=== PATIENT | female | born 1970 | race Caucasian/White ===

== ENCOUNTER 2017-12-06 20:21 | Observation (INO) | payer MEDICARE ==
--- NOTE | 2017-12-06 21:34 | ED PDOC ---
HPI: General Adult Time Seen by Provider: 12/06/17 20:32 Chief Complaint (Nursing): Abnormal Labs Chief Complaint (Provider): Anemia History Per: Patient History/Exam Limitations: no limitations Current Symptoms Are (Timing): Still Present Additional Complaint(s): 47 year old female, with past medical history of iron deficiency, anemia, and epilepsy, presents to the ED via EMS due to anemia. Patient saw her neurologist 2-3 months ago who wanted blood work done. Patient obtained blood work yesterday showing she has hemoglobin at 5. Since last week, she has been having dizziness. 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 She can not get any iron fusion also because of insurance problems. Denies fever, CP, SOB, headache, N/V, abdominal pain, melena, hematochezia, heavy menses. PMD: Keisha Varela Past Medical History Reviewed: Historical Data, Nursing Documentation, Vital Signs Vital Signs: Last Vital Signs Temp 98.2 F 12/07/17 00:44 Pulse 87 12/07/17 00:44 Resp 20 12/07/17 00:44 BP 144/70 12/07/17 00:44 Pulse Ox 97 12/07/17 00:44 - Medical History PMH: Anemia, Seizures Other PMH: Iron deficiency and epilepsy - Surgical History Surgical History: No Surg Hx - Family History Family History: States: Unknown Family Hx - Home Medications Home Medications: Ambulatory Orders Medication Instructions Recorded Carbamazepine [Carbatrol] 400 mg PO Q12 07/26/15 - Allergies Allergies/Adverse Reactions: Allergies Allergy/AdvReac Type Severity Reaction Status Date / Time No Known Allergies Allergy Verified 12/06/17 20:21 Review of Systems ROS Statement: Except As Marked, All Systems Reviewed And Found Negative Constitutional: Negative for: Fever Cardiovascular: Negative for: Chest Pain Respiratory: Negative for: Shortness of Breath Neurological: Positive for: Dizziness Physical Exam - Reviewed Nursing Documentation Reviewed: Yes Vital Signs Reviewed: Yes - Physical Exam Comments: GENERALIZED APPEARANCE: Patient is awake, alert, oriented x3 in no acute distress. SKIN: Warm, dry; (-) cyanosis. HEAD: (-) scalp swelling or tenderness. EYES: (-) conjunctival pallor. ENMT: Mucous membranes dry. NECK: (-) tenderness, (-) stiffness, (-) lymphadenopathy. CHEST AND RESPIRATORY: (-) rales, (-) rhonchi, (-) wheezes; breath sounds equal bilaterally. HEART AND CARDIOVASCULAR: (-) irregularity; (-) murmur, (-) gallop. ABDOMEN AND GI: Soft; (-) distention, (-) tenderness, (-) rebound, (-) guarding , (-) palpable masses. EXTREMITIES: (-) deformity; (-) edema. Distal pulses: present. NEURO AND PSYCH: Mental status as above. Pupils EOMI, (-) facial asymmetry; Strength symmetric. - Laboratory Results Result Diagrams: 12/06/17 21:17 12/06/17 21:17 - ECG O2 Sat by Pulse Oximetry: 99 (RA) Pulse Ox Interpretation: Normal Medical Decision Making Medical Decision Making: Initial Impression: Anemia Initial Plan: Type and screen ECG CMP ED urine ED urine dipstick CBC Chest x-ray Uhcg (-) Udip (-) Labs reviewed : hgb 5. CXR : NAD, as read by AMANDO EKG : 72 bpm, no acute ST changes, as read by AMANDO 2 units of PRBCs ordered for transfusion Patient to be admitted. Case d/w Dr. Thornton, agrees with plan for inpt obs for transfusions. Bridge orders placed. Scribe Attestation: Documented by Jhonathan Morales acting as a scribe for Yara GOEL. Provider Scribe Attestation: All medical record entries made by the Scribe were at my direction and personally dictated by me. I have reviewed the chart and agree that the record accurately reflects my personal performance of the history, physical exam, medical decision making, and the department course for this patient. I have also personally directed, reviewed, and agree with the discharge instructions and disposition. Disposition - Clinical Impression Clinical Impression: Anemia requiring transfusions - Patient ED Disposition Is Patient to be Admitted: Yes Counseled Patient/Family Regarding: Studies Performed, Diagnosis - Disposition Disposition Time: 22:00 Condition: STABLE - Pt Status Changed To: Hospital Disposition Of: Observation - PA / DAY CARE HOME PROVIDER / Resident Statement / has reviewed & agrees with the documentation as recorded.
[2017-12-06 21:35] LABS: BASO # 0.1 K/uL (0.0-0.2); BASO % 1.1 % (0.0-2.0); EOS # 0.2 K/uL (0.0-0.7); EOS % 2.2 % (0.0-4.0); LYMPH # 1.9 K/uL (1.0-4.3); LYMPH % 26.1 % (20.0-40.0); MEAN CORPUSCULAR HEMOGLOBIN 15.1 pg (27.0-31.0); MEAN CORPUSCULAR HGB CONC 27.4 g/dL (33.0-37.0); MEAN PLATELET VOLUME 8.6 fl (7.2-11.7); MONO # 0.6 K/uL (0.0-0.8); MONO % 8.3 % (0.0-10.0); NEUT # 4.5 K/uL (1.8-7.0); NEUT % 62.3 % (50.0-75.0); NRBC % 0.1 % (0.0-0.0); RBC 3.73 Mil/uL (3.80-5.20); RED CELL DISTRIBUTION WIDTH 21.8 % (11.5-14.5); WHITE BLOOD COUNT 7.3 K/uL (4.8-10.8)
[2017-12-06 21:41] LABS: ALB/GLOB RATIO 1.4 (1.0-2.1); ALBUMIN 4.6 g/dL (3.5-5.0); ALT/SGPT 23 U/L (9-52); AST/SGOT 21 U/L (14-36); BLOOD UREA NITROGEN 14 mg/dl (7-17); CALCIUM 8.9 mg/dL (8.4-10.2); GFR AFRICAN-AMERICAN > 60; GFR NON-AFRICAN AMERICAN > 60
[2017-12-06 21:48] LABS: HEMOGLOBIN 5.6 g/dL (12.0-16.0)
[2017-12-06 23:03] LABS: MEAN CELL VOLUME 55.2 fl (81.0-99.0)
[2017-12-06 23:23] LABS: IRON 20 ug/dL (37-170)
[2017-12-06 23:32] LABS: % IRON SATURATION 4 % (20-55); TOTAL IRON BINDING CAPACITY 504 ug/dL (250-450)
[2017-12-06 23:58] LABS: FERRITIN 2.6 ng/Ml (6.24-137.0)
--- NOTE | 2017-12-07 08:14 | RAD ---
HISTORY: dizziness COMPARISON: 07/27/2015 FINDINGS: LUNGS: No active pulmonary disease. PLEURA: No significant pleural effusion identified, no pneumothorax apparent. CARDIOVASCULAR: Normal. OSSEOUS STRUCTURES: No significant abnormalities. VISUALIZED UPPER ABDOMEN: Normal. OTHER FINDINGS: None. IMPRESSION: No focal airspace opacity. Please note that chest radiographs have low sensitivity for small pulmonary nodules. If indicated, chest CT should be obtained.
[2017-12-07 08:32] LABS: BASO % 0.8 % (0.0-2.0); EOS # 0.2 K/uL (0.0-0.7); EOS % 3.3 % (0.0-4.0); HEMOGLOBIN 7.5 g/dL (12.0-16.0); LYMPH # 1.4 K/uL (1.0-4.3); LYMPH % 23.6 % (20.0-40.0); MEAN CELL VOLUME 60.7 fl (81.0-99.0); MEAN CORPUSCULAR HGB CONC 29.7 g/dL (33.0-37.0); MEAN PLATELET VOLUME 8.5 fl (7.2-11.7); MONO # 0.6 K/uL (0.0-0.8); MONO % 10.1 % (0.0-10.0); NEUT # 3.7 K/uL (1.8-7.0); NEUT % 62.2 % (50.0-75.0); RBC 4.18 Mil/uL (3.80-5.20); RED CELL DISTRIBUTION WIDTH 29.3 % (11.5-14.5); WHITE BLOOD COUNT 5.9 K/uL (4.8-10.8)
[2017-12-07 11:11] LABS: HEMOGLOBIN 7.4 g/dL (12.0-16.0); MEAN CELL VOLUME 61.2 fl (81.0-99.0); MEAN CORPUSCULAR HGB CONC 29.4 g/dL (33.0-37.0); RBC 4.1 Mil/uL (3.80-5.20); RED CELL DISTRIBUTION WIDTH 29.5 % (11.5-14.5); WHITE BLOOD COUNT 5.4 K/uL (4.8-10.8)
[2017-12-07 11:18] LABS: ALBUMIN 3.8 g/dL (3.5-5.0); ALT/SGPT 21 U/L (9-52); AST/SGOT 23 U/L (14-36); BLOOD UREA NITROGEN 12 mg/dl (7-17); CALCIUM 8.7 mg/dL (8.4-10.2); GFR AFRICAN-AMERICAN > 60; GFR NON-AFRICAN AMERICAN > 60
--- NOTE | 2017-12-07 14:52 | CP.PCM.HP ---
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 She is followed by Neurologist for Seizure and Headache Worsening symptoms: Dizziness Aggravated factor: Unable to visit a Hematology for over a year due to insurance issues. Pt denied: Fever, chills, any bleeding, CP, palpitations, syncope, numbness, SOB, cough, n/v/d, abdominal pain, urinary symptoms, sick contact, recent travel out of [facility]. CXR: No active disease. Present on Admission - Present on Admission Any Indicators Present on Admission: No Review of Systems - Constitutional Constitutional: Other (negative) - EENT Eyes: Other (negative) Ears: Other (negative) Nose/Mouth/Throat: Other (negative) - Cardiovascular Cardiovascular: Other (negative) - Respiratory Respiratory: Other (negative) - Gastrointestinal Gastrointestinal: Other (negative) - Genitourinary Genitourinary: Other (negative) - Reproductive: Female Reproductive:Female: Heavy Menses - Menstruation Menstruation: Heavy Menses - Musculoskeletal Musculoskeletal: Other (negative) - Integumentary Integumentary: Other (negative) - Neurological Neurological: Dizziness - Psychiatric Psychiatric: Other (negative) - Endocrine Endocrine: Other (negative) - Hematologic/Lymphatic Hematologic: Other (anemia) Past Patient History - Past Medical History & Family History Past Medical History?: Yes Pertinent Family History: Unknown - Past Social History Smoking Status: Never Smoked Alcohol: None Drugs: Denies Home Situation {Lives}: Alone - CARDIAC Hx Cardiac Disorders: No - PULMONARY Hx Respiratory Disorders: No - NEUROLOGICAL Hx Neurological Disorder: Yes Hx Seizures: Yes - HEENT Hx HEENT Problems: No - RENAL Hx Chronic Kidney Disease: No - ENDOCRINE/METABOLIC Hx Endocrine Disorders: No - HEMATOLOGICAL/ONCOLOGICAL Hx Blood Disorders: Yes Hx Anemia: Yes - INTEGUMENTARY Hx Dermatological Problems: No - MUSCULOSKELETAL/RHEUMATOLOGICAL Hx Musculoskeletal Disorders: No Hx Falls: No - GASTROINTESTINAL Hx Gastrointestinal Disorders: No - GENITOURINARY/GYNECOLOGICAL Hx Genitourinary Disorders: No - PSYCHIATRIC Hx Psychophysiologic Disorder: No Hx Substance Use: No - SURGICAL HISTORY Hx Surgeries: Yes Hx Section: Yes Hx Musculoskeletal Surgery: Yes (right foot) - ANESTHESIA Hx Anesthesia: Yes Hx Anesthesia Reactions: No Hx Malignant Hyperthermia: No Has any member of the family had a problem w/ anesthesia?: No Meds Allergies/Adverse Reactions: Allergies Allergy/AdvReac Type Severity Reaction Status Date / Time No Known Allergies Allergy Verified 12/06/17 20:21 Physical Exam - Constitutional Appears: No Acute Distress - Head Exam Head Exam: NORMAL INSPECTION - Eye Exam Eye Exam: PERRL - ENT Exam ENT Exam: Normal Exam - Neck Exam Neck exam: Positive for: Normal Inspection - Respiratory Exam Respiratory Exam: Clear to Auscultation Bilateral - Cardiovascular Exam Cardiovascular Exam: REGULAR RHYTHM - GI/Abdominal Exam GI & Abdominal Exam: Normal Bowel Sounds, Soft - Extremities Exam Extremities exam: Positive for: normal inspection - Back Exam Back exam: NORMAL INSPECTION - Neurological Exam Neurological exam: Alert, Oriented x3 Additional comments: No motor/sensory deficit. - Psychiatric Exam Psychiatric exam: Normal Affect - Skin Skin Exam: Warm Results - Vital Signs Recent Vital Signs: Last Vital Signs Temp 97.4 F L 12/07/17 08:08 Pulse 64 12/07/17 08:08 Resp 19 12/07/17 08:08 BP 113/75 12/07/17 08:08 Pulse Ox 98 12/07/17 08:08 reviewed J.pTan - Labs Result Diagrams: 12/07/17 22:33 12/07/17 11:01 Labs: Laboratory Results - last 24 hr 12/06/17 12/06/17 12/06/17 21:17 21:17 23:00 WBC 7.3 RBC 3.73 L Hgb 5.6 L* Hct 20.6 L MCV 55.2 L MCH 15.1 L MCHC 27.4 L RDW 21.8 H Plt Count 230 MPV 8.6 Neut % (Auto) 62.3 Lymph % (Auto) 26.1 [place] % (Auto) 8.3 Eos % (Auto) 2.2 Baso % (Auto) 1.1 Neut # (Auto) 4.5 Lymph # (Auto) 1.9 [place] # (Auto) 0.6 Eos # (Auto) 0.2 Baso # (Auto) 0.1 Retic Count Sodium 139 Potassium 4.0 Chloride 104 Carbon Dioxide 25 Anion Gap 14 BUN 14 Creatinine 0.5 L Est GFR ( Amer) > 60 Est GFR (Non-Af Amer) > 60 Random Glucose 89 Calcium 8.9 Iron TIBC % Saturation Ferritin 2.6 L Total Bilirubin 0.3 AST 21 ALT 23 Alkaline Phosphatase 82 Total Protein 8.0 Albumin 4.6 Globulin 3.4 Albumin/Globulin Ratio 1.4 Vitamin B12 601 Carbamazepine Blood Type Antibody Screen Crossmatch BBK History Checked 12/06/17 12/06/17 12/06/17 23:00 23:00 23:06 WBC RBC Hgb Hct MCV MCH MCHC RDW Plt Count MPV Neut % (Auto) Lymph % (Auto) [place] % (Auto) Eos % (Auto) Baso % (Auto) Neut # (Auto) Lymph # (Auto) [place] # (Auto) Eos # (Auto) Baso # (Auto) Retic Count 2.8 H Sodium Potassium Chloride Carbon Dioxide Anion Gap BUN Creatinine Est GFR ( Amer) Est GFR (Non-Af Amer) Random Glucose Calcium Iron 20 L TIBC 504 H % Saturation 4 L Ferritin Total Bilirubin AST ALT Alkaline Phosphatase Total Protein Albumin Globulin Albumin/Globulin Ratio Vitamin B12 Carbamazepine Blood Type O POSITIVE Antibody Screen Negative Crossmatch See Detail BBK History Checked Patient has bt 12/07/17 12/07/17 12/07/17 08:11 08:11 11:01 WBC 5.9 5.4 RBC 4.18 4.10 Hgb 7.5 L 7.4 L Hct 25.4 L 25.1 L MCV 60.7 L D 61.2 L MCH 18.0 L 18.0 L MCHC 29.7 L 29.4 L RDW 29.3 H 29.5 H Plt Count 220 210 MPV 8.5 Neut % (Auto) 62.2 Lymph % (Auto) 23.6 [place] % (Auto) 10.1 H Eos % (Auto) 3.3 Baso % (Auto) 0.8 Neut # (Auto) 3.7 Lymph # (Auto) 1.4 [place] # (Auto) 0.6 Eos # (Auto) 0.2 Baso # (Auto) 0.0 Retic Count Sodium Potassium Chloride Carbon Dioxide Anion Gap BUN Creatinine Est GFR ( Amer) Est GFR (Non-Af Amer) Random Glucose Calcium Iron TIBC % Saturation Ferritin Total Bilirubin AST ALT Alkaline Phosphatase Total Protein Albumin Globulin Albumin/Globulin Ratio Vitamin B12 Carbamazepine 7.2 Blood Type Antibody Screen Crossmatch BBK History Checked 12/07/17 11:01 WBC RBC Hgb Hct MCV MCH MCHC RDW Plt Count MPV Neut % (Auto) Lymph % (Auto) [place] % (Auto) Eos % (Auto) Baso % (Auto) Neut # (Auto) Lymph # (Auto) [place] # (Auto) Eos # (Auto) Baso # (Auto) Retic Count Sodium 142 Potassium 4.1 Chloride 106 Carbon Dioxide 24 Anion Gap 16 BUN 12 Creatinine 0.6 L Est GFR ( Amer) > 60 Est GFR (Non-Af Amer) > 60 Random Glucose 80 Calcium 8.7 Iron TIBC % Saturation Ferritin Total Bilirubin 0.5 AST 23 ALT 21 Alkaline Phosphatase 76 Total Protein 7.6 Albumin 3.8 Globulin 3.7 Albumin/Globulin Ratio 1.0 Vitamin B12 Carbamazepine Blood Type Antibody Screen Crossmatch BBK History Checked reviewed J.P. - Imaging and Cardiology Chest x-ray Status: Report reviewed by me (Angela.P.) Assessment & Plan (1) Anemia requiring transfusions Status: Acute Priority: High Comment: Iron def. (2) Hx of seizure disorder Status: Chronic Priority: Low - Assessment and Plan (Free Text) Plan: Pt had 2 U PRBC with no adverse reaction, further PRBC transfusion , continue Tegretol X-R, Tylenol and rest of Tx. Hematology consult. - Date & Time Date: 12/07/17 Time: 11:00
[2017-12-07 22:37] LABS: HEMOGLOBIN 8.9 g/dL (12.0-16.0); MEAN CELL VOLUME 63.6 fl (81.0-99.0); MEAN CORPUSCULAR HEMOGLOBIN 19.2 pg (27.0-31.0); MEAN CORPUSCULAR HGB CONC 30.2 g/dL (33.0-37.0); RBC 4.65 Mil/uL (3.80-5.20); RED CELL DISTRIBUTION WIDTH 31.4 % (11.5-14.5); WHITE BLOOD COUNT 7.2 K/uL (4.8-10.8)
--- NOTE | 2017-12-08 08:37 | CARD ---
APPROVED REPORT EKG Measurement Heart [id number] <Conclusion> Normal sinus rhythm Normal ECG
--- NOTE | 2017-12-08 14:12 | CP.PCM.CON ---
History of Present Illness - History of Present Illness History of Present Illness: This is a 47 yrs old female who was admitted for severe iron deficiency anemia.On admission her hgb was 5.6 with a mcv of 558.. Her WBC and Platelets were normal . She was feeling very tired and was a little short of breath as well.. She was transfused 3 units of packed cells and her hgb today was 8.9gms The iron was 20, Tibc 504, Iron Sat 4.7%, and ferritin 2.6ngm. Retic was 2.8. According to her she has been going through this for the past couple of years. . She is being seen by Dr Loving for dysfunctional uterine bleeding. She has periods for about 5 days ,with heavy bleed. She has been scheduled for surgery a couple of times but everytime her hgb is low and surgery is postponed. She claims that her children are teenagers and does not want any more kids.She is willing for a total hysterectomy if thats what is needed to feel better. She is not a smoker or a heavy drinker. Past Patient History - Past Medical History & Family History Past Medical History?: Yes - Past Social History Smoking Status: Never Smoked Alcohol: None Drugs: Denies Home Situation {Lives}: Alone - CARDIAC Hx Cardiac Disorders: No - PULMONARY Hx Respiratory Disorders: No - NEUROLOGICAL Hx Neurological Disorder: Yes Hx Seizures: Yes - HEENT Hx HEENT Problems: No - RENAL Hx Chronic Kidney Disease: No - ENDOCRINE/METABOLIC Hx Endocrine Disorders: No - HEMATOLOGICAL/ONCOLOGICAL Hx Blood Disorders: Yes Hx Anemia: Yes - INTEGUMENTARY Hx Dermatological Problems: No - MUSCULOSKELETAL/RHEUMATOLOGICAL Hx Musculoskeletal Disorders: No Hx Falls: No - GASTROINTESTINAL Hx Gastrointestinal Disorders: No - GENITOURINARY/GYNECOLOGICAL Hx Genitourinary Disorders: No - PSYCHIATRIC Hx Psychophysiologic Disorder: No Hx Substance Use: No - SURGICAL HISTORY Hx Surgeries: Yes Hx Section: Yes Hx Musculoskeletal Surgery: Yes (right foot) - ANESTHESIA Hx Anesthesia: Yes Hx Anesthesia Reactions: No Hx Malignant Hyperthermia: No Has any member of the family had a problem w/ anesthesia?: No Meds Allergies/Adverse Reactions: Allergies Allergy/AdvReac Type Severity Reaction Status Date / Time No Known Allergies Allergy Verified 12/06/17 20:21 - Medications Medications: Current Medications Acetaminophen (Tylenol 325mg Tab) 650 mg PO Q4 PRN PRN Reason: Headache Last Admin: 12/07/17 15:39 Dose: 650 mg Carbamazepine (Tegretol-Xr) 400 mg PO Q12 TERRI Last Admin: 12/08/17 09:56 Dose: 400 mg Iron Sucrose 200 mg/ Sodium (Chloride) 110 mls @ 110 mls/hr IVPB DAILY TERRI Stop: 12/09/17 09:59 Last Admin: 12/08/17 11:32 Dose: 110 mls/hr Physical Exam - Additional Findings Additional findings: Physical exan; alert, well oriented in no acute distress neck; supple, no adnenopathy Chest; clear, no rales or rhonchi Heast; RSR, no murmur Abd; Soft, no mass, no h/s megaly Results - Vital Signs Recent Vital Signs: Last Vital Signs Temp 97.5 F L 12/08/17 08:15 Pulse 70 12/08/17 08:15 Resp 19 12/08/17 08:15 BP 102/68 12/08/17 08:15 Pulse Ox 98 12/08/17 08:15 - Labs Result Diagrams: 12/07/17 22:33 12/07/17 11:01 Labs: Laboratory Results - last 24 hr 12/06/17 12/07/17 23:06 22:33 WBC 7.2 RBC 4.65 Hgb 8.9 L Hct 29.6 L MCV 63.6 L D MCH 19.2 L MCHC 30.2 L RDW 31.4 H Plt Count 237 Blood Type O POSITIVE Antibody Screen Negative Crossmatch See Detail BBK History Checked Patient has bt Assessment & Plan - Assessment and Plan (Free Text) Assessment: Impression; Severe iron deficiency anemia secondary to dysfunctional uterine bleeding.. Plan: plan; Since her ferritin was so low, will give her 3 total days of venofer to see if the hgb and the ferritin goes up.
--- NOTE | 2017-12-08 17:39 | CP.PCM.PN ---
Subjective - Date & Time of Evaluation Date of Evaluation: 12/08/17 Time of Evaluation: 14:15 - Subjective Subjective: F/U Anemia. no AD, N/C, no dizziness Objective - Vital Signs/Intake and Output Vital Signs (last 24 hours): Temp Pulse Resp BP Pulse Ox 97.7 F 76 18 114/78 100 12/08/17 15:56 12/08/17 15:56 12/08/17 15:56 12/08/17 15:56 12/08/17 15:56 - Medications Medications: Current Medications Acetaminophen (Tylenol 325mg Tab) 650 mg PO Q4 PRN PRN Reason: Headache Last Admin: 12/07/17 15:39 Dose: 650 mg Carbamazepine (Tegretol-Xr) 400 mg PO Q12 TERRI Last Admin: 12/08/17 09:56 Dose: 400 mg Iron Sucrose 200 mg/ Sodium (Chloride) 110 mls @ 110 mls/hr IVPB DAILY TERRI Stop: 12/09/17 09:59 Last Admin: 12/08/17 11:32 Dose: 110 mls/hr - Labs Labs: 12/07/17 22:33 12/07/17 11:01 - Constitutional Appears: No Acute Distress - Head Exam Head Exam: NORMAL INSPECTION - Eye Exam Eye Exam: PERRL - ENT Exam ENT Exam: Normal Exam - Neck Exam Neck Exam: Normal Inspection - Respiratory Exam Respiratory Exam: Clear to Ausculation Bilateral - Cardiovascular Exam Cardiovascular Exam: REGULAR RHYTHM - GI/Abdominal Exam GI & Abdominal Exam: Soft, Normal Bowel Sounds - Extremities Exam Extremities Exam: Normal Inspection - Back Exam Back Exam: NORMAL INSPECTION - Neurological Exam Neurological Exam: Alert, Oriented x3. absent: Motor Sensory Deficit - Psychiatric Exam Psychiatric exam: Normal Affect, Normal Mood - Skin Skin Exam: Warm Assessment and Plan (1) Anemia requiring transfusions Status: Acute (2) Hx of seizure disorder Status: Chronic - Assessment and Plan (Free Text) Plan: blood test irion def anemia , Hgb 8.9 post PRBC transfusion , Hematology consult appreciated , Venofer IV
[2017-12-09 07:59] VITALS: BP 98/61; PULSE 70; RESP 20; TEMP 97.9; O2SAT 98
--- NOTE | 2017-12-09 09:28 | CP.PCM.PN ---
Subjective - Date & Time of Evaluation Date of Evaluation: 12/09/17 Time of Evaluation: 09:22 - Subjective Subjective: Pt is feeling much better . Her hgb has gone up to 9.8gms and she has received 3 doses of venofer as well Objective - Vital Signs/Intake and Output Vital Signs (last 24 hours): Temp Pulse Resp BP Pulse Ox 97.9 F 70 20 98/61 L 98 12/09/17 07:58 12/09/17 07:58 12/09/17 07:58 12/09/17 07:58 12/09/17 07:58 - Medications Medications: Current Medications Acetaminophen (Tylenol 325mg Tab) 650 mg PO Q4 PRN PRN Reason: Headache Last Admin: 12/08/17 21:26 Dose: 650 mg Carbamazepine (Tegretol-Xr) 400 mg PO Q12 TERRI Last Admin: 12/09/17 08:45 Dose: 400 mg Iron Sucrose 200 mg/ Sodium (Chloride) 110 mls @ 110 mls/hr IVPB DAILY TERRI Stop: 12/09/17 09:59 Last Admin: 12/08/17 11:32 Dose: 110 mls/hr - Labs Labs: 12/07/17 22:33 12/07/17 11:01 Assessment and Plan - Assessment and Plan (Free Text) Plan: Plan; Pt may go home after the last dose of venofer today. She will have a cbc in 1 week.I have asked her to ask Dr Loving for a dat3e when he can do the surgery, and Dr Green can then have her ready with transfusions as needed for the surgery.
--- NOTE | 2017-12-09 15:31 | CP.PCM.PN ---
Objective - Vital Signs/Intake and Output Vital Signs (last 24 hours): Temp Pulse Resp BP Pulse Ox 97.9 F 70 20 98/61 L 98 12/09/17 07:58 12/09/17 07:58 12/09/17 07:58 12/09/17 07:58 12/09/17 07:58 - Medications Medications: Current Medications Acetaminophen (Tylenol 325mg Tab) 650 mg PO Q4 PRN PRN Reason: Headache Last Admin: 12/08/17 21:26 Dose: 650 mg Carbamazepine (Tegretol-Xr) 400 mg PO Q12 TERRI Last Admin: 12/09/17 08:45 Dose: 400 mg - Labs Labs: 12/07/17 22:33 12/07/17 11:01 Assessment and Plan (1) Anemia requiring transfusions Status: Acute (2) Hx of seizure disorder Status: Chronic
[2017-12-09 18:36] LABS: ALBUMIN (PEP) 4.1 g/dL (3.8-4.8); ALPHA-1-GLOBULIN (PEP) 0.2 g/dL (0.2-0.3)
--- NOTE | 2017-12-09 23:29 | CP.PCM.DIS ---
Provider - Provider Date of Admission: 12/06/17 22:25 Attending physician: Jesus Manuel Thornton MD Diagnosis - Discharge Diagnosis (1) Anemia requiring transfusions Status: Acute Priority: High (2) Hx of seizure disorder Status: Chronic Priority: Low Hospital Course - Lab Results Lab Results: Most Recent Lab Values WBC 7.2 K/uL (4.8-10.8) 12/07/17 22:33 RBC 4.65 Mil/uL (3.80-5.20) 12/07/17 22:33 Hgb 8.9 g/dL (12.0-16.0) L 12/07/17 22:33 Hct 29.6 % (34.0-47.0) L 12/07/17 22:33 MCV 63.6 fl (81.0-99.0) L D 12/07/17 22:33 MCH 19.2 pg (27.0-31.0) L 12/07/17 22:33 MCHC 30.2 g/dL (33.0-37.0) L 12/07/17 22:33 RDW 31.4 % (11.5-14.5) H 12/07/17 22:33 Plt Count 237 K/uL (130-400) 12/07/17 22:33 MPV 8.5 fl (7.2-11.7) 12/07/17 08:11 Neut % (Auto) 62.2 % (50.0-75.0) 12/07/17 08:11 Lymph % (Auto) 23.6 % (20.0-40.0) 12/07/17 08:11 [place] % (Auto) 10.1 % (0.0-10.0) H 12/07/17 08:11 Eos % (Auto) 3.3 % (0.0-4.0) 12/07/17 08:11 Baso % (Auto) 0.8 % (0.0-2.0) 12/07/17 08:11 Neut # (Auto) 3.7 K/uL (1.8-7.0) 12/07/17 08:11 Lymph # (Auto) 1.4 K/uL (1.0-4.3) 12/07/17 08:11 [place] # (Auto) 0.6 K/uL (0.0-0.8) 12/07/17 08:11 Eos # (Auto) 0.2 K/uL (0.0-0.7) 12/07/17 08:11 Baso # (Auto) 0.0 K/uL (0.0-0.2) 12/07/17 08:11 Retic Count 2.8 % (0.5-1.5) H 12/06/17 23:00 Sodium 142 mmol/l (132-148) 12/07/17 11:01 Potassium 4.1 MMOL/L (3.6-5.0) 12/07/17 11:01 Chloride 106 mmol/L (98-107) 12/07/17 11:01 Carbon Dioxide 24 mmol/L (22-30) 12/07/17 11:01 Anion Gap 16 (10-20) 12/07/17 11:01 BUN 12 mg/dl (7-17) 12/07/17 11:01 Creatinine 0.6 mg/dl (0.7-1.2) L 12/07/17 11:01 Est GFR ( Amer) > 60 12/07/17 11:01 Est GFR (Non-Af Amer) > 60 12/07/17 11:01 Random Glucose 80 mg/dL (65-105) 12/07/17 11:01 Calcium 8.7 mg/dL (8.4-10.2) 12/07/17 11:01 Iron 20 ug/dL (37-170) L 12/06/17 23:00 TIBC 504 ug/dL (250-450) H 12/06/17 23:00 % Saturation 4 % (20-55) L 12/06/17 23:00 Ferritin 2.6 ng/Ml (6.24-137.0) L 12/06/17 23:00 Total Bilirubin 0.5 mg/dl (0.2-1.3) 12/07/17 11:01 AST 23 U/L (14-36) 12/07/17 11:01 ALT 21 U/L (9-52) 12/07/17 11:01 Alkaline Phosphatase 76 U/L (38-126) 12/07/17 11:01 Total Protein 7.6 G/DL (6.3-8.2) 12/07/17 11:01 Total Protein (PEP) 7.2 g/dL (6.1-8.1) 12/06/17 23:00 Albumin 3.8 g/dL (3.5-5.0) 12/07/17 11:01 Albumin (PEP) 4.1 g/dL (3.8-4.8) 12/06/17 23:00 Globulin 3.7 gm/dL (2.2-3.9) 12/07/17 11:01 Albumin/Globulin Ratio 1.0 (1.0-2.1) 12/07/17 11:01 Llpej-3-Avfwmegru 0.2 g/dL (0.2-0.3) 12/06/17 23:00 Ohvhz-6-Ufiaabite 0.8 g/dL (0.5-0.9) 12/06/17 23:00 Vuzn-9-Hhuuwggh 0.5 g/dL (0.4-0.6) 12/06/17 23:00 Useq-8-Lipchjsx 0.4 g/dL (0.2-0.5) 12/06/17 23:00 Gamma Globulins 1.1 g/dL (0.8-1.7) 12/06/17 23:00 Abnorm Protein Band 1 TEST NOT PERFORMED 12/06/17 23:00 Abnorm Protein Band 2 TEST NOT PERFORMED 12/06/17 23:00 Abnorm Protein Band 3 TEST NOT PERFORMED 12/06/17 23:00 Vitamin B12 601 pg/mL (239-931) 12/06/17 23:00 Stool Occult Blood Negative (NEGATIVE) 12/08/17 15:00 Carbamazepine 7.2 ug/mL (4.0-12.0) 12/07/17 08:11 DARLINE & SPEP Interp See note 12/06/17 23:00 Blood Type O POSITIVE 12/06/17 23:06 Antibody Screen Negative 12/06/17 23:06 Crossmatch See Detail 12/06/17 23:06 BBK History Checked Patient has bt 12/06/17 23:06 Discharge Exam - Head Exam Head Exam: NORMAL INSPECTION Discharge Plan - Follow Up Plan Condition: STABLE Disposition: HOME/ ROUTINE Instructions: Anemia Caused by Low Iron, Adult (DC), Anemia of Chronic Disease (DC) Additional Instructions: follow up with primary MD, dr green and dr loving in 1 week Referrals: Vimal Loving MD [Staff Provider] - Manuel Green MD [Staff Provider] - Travis Ambrose MD [Staff Provider] - Keisha Braxton MD [Staff Provider] - Jesus Manuel Thornton MD [Staff Provider] -
== END 2017-12-09 16:49 | disposition home or self-care (01) ==
LOC: H.ER 20:21 → H.ERHOLD 22:25 → H.MEDSURG1 12-07 00:06
PROVIDERS: ADMIT Internal Medicine Pulmonary Disease; ATTEND Internal Medicine Pulmonary Disease
DX: D50.0 Iron deficiency anemia secondary to blood loss (chronic) (principal); G40.909 Epilepsy, unspecified, not intractable, without status epilepticus; N93.8 Other specified abnormal uterine and vaginal bleeding
CPT/HCPCS: 36415; 36430; 71045; 80053; 80156; 81025; 82607; 82728; 83540; 83550; 84155; 84165; 85025; 85027; 85044; 86850; 86900; 86920; 93005; 96365; 96366; 99283; G0328; G0378; J1756; P9051

== ENCOUNTER 2018-01-11 12:38 | Emergency (ER) | payer MEDICARE ==
[2018-01-11 12:42] VITALS: BP 127/66; PULSE 83; RESP 18; TEMP 98; O2SAT 99
--- NOTE | 2018-01-11 13:28 | ED PDOC ---
HPI: Trauma/Fall - HPI Time Seen by Provider: 01/11/18 12:51 Chief Complaint (Nursing): Back Pain Chief Complaint (Provider): Back Pain History Per: Patient History/Exam Limitations: no limitations Onset/Duration Of Symptoms: Mins (prior to arrival) Additional Complaint(s): 47 year old female with hx of cerebral palsy and seizures presents to the ED via EMS s/p falling prior to arrival. Patient reports she was at the [employer] when she got up from her chair and went to go sit back down, but the chair went out from underneath her. She notes falling backwards and striking her back against the chair, sustaining pain to the middle of her back and along her posterior ribs, worse on palpation and movement. Otherwise she denies any pain with respiration. PMD: none provided Past Medical History Reviewed: Historical Data, Nursing Documentation, Vital Signs Vital Signs: Last Vital Signs Temp 98.0 F 01/11/18 12:40 Pulse 83 01/11/18 12:40 Resp 18 01/11/18 12:40 BP 127/66 01/11/18 12:40 Pulse Ox 99 01/11/18 12:40 - Medical History PMH: Anemia, Seizures Denies: Chronic Kidney Disease Other PMH: cerebral palsy - Surgical History Surgical History: No Surg Hx - Family History Family History: States: Unknown Family Hx - Social History Current smoker - smoking cessation education provided: No Alcohol: None Drugs: Denies - Home Medications Home Medications: Ambulatory Orders Medication Instructions Recorded Carbamazepine [Carbatrol] 400 mg PO Q12 07/26/15 Cyclobenzaprine [Cyclobenzaprine 10 mg PO TID #20 tab 01/11/18 HCl] Ibuprofen [Motrin] 600 mg PO Q6 #20 tab 01/11/18 - Allergies Allergies/Adverse Reactions: Allergies Allergy/AdvReac Type Severity Reaction Status Date / Time No Known Allergies Allergy Verified 12/06/17 20:21 Review of Systems ROS Statement: Except As Marked, All Systems Reviewed And Found Negative Respiratory: Negative for: Other (pain with respiration) Musculoskeletal: Positive for: Back Pain (to middle of back and along posterior ribs) Physical Exam - Reviewed Nursing Documentation Reviewed: Yes Vital Signs Reviewed: Yes - Physical Exam Appears: Positive for: No Acute Distress Head Exam: Positive for: ATRAUMATIC, NORMOCEPHALIC Skin: Positive for: Normal Color, Warm, Dry Eye Exam: Positive for: Normal appearance Neck: Positive for: Normal, Painless ROM, Supple Cardiovascular/Chest: Positive for: Regular Rate, Rhythm. Negative for: Murmur Respiratory: Positive for: Normal Breath Sounds. Negative for: Accessory Muscle Use, Respiratory Distress Gastrointestinal/Abdominal: Positive for: Normal Exam, Soft. Negative for: Tenderness Back: Positive for: Other (thoracic midline tenderness; superficial abrasion extending from mid thoracic spine to left posterior ribs to left scapula with no ecchymosis, no crepitus) Extremity: Positive for: Normal ROM Neurologic/Psych: Positive for: Alert, Oriented (x3) - ECG O2 Sat by Pulse Oximetry: 99 (RA) Pulse Ox Interpretation: Normal Medical Decision Making Medical Decision Making: Time: 1313 Initial Impression: contusion s/p fall r/o rib fracture, superficial abrasion Initial Plan: --XR ribs and chest XR reviewed: NAD, as read by COLIN Pt educated on results and demonstrated full understanding Pt doing we Scribe Attestation: Documented by America Negro, acting as a scribe for Ninoska Khan PA-C. Provider Scribe Attestation: All medical record entries made by the Scribe were at my direction and personally dictated by me. I have reviewed the chart and agree that the record accurately reflects my personal performance of the history, physical exam, medical decision making, and the department course for this patient. I have also personally directed, reviewed, and agree with the discharge instructions and disposition. Disposition - Clinical Impression Clinical Impression: Back pain, Contusion, Fall - Patient ED Disposition Is Patient to be Admitted: No - Disposition Disposition: Routine/Home Disposition Time: 14:11 Condition: STABLE Prescriptions: Cyclobenzaprine [Cyclobenzaprine HCl] 10 mg PO TID #20 tab Ibuprofen [Motrin] 600 mg PO Q6 #20 tab Instructions: Contusion (DC), Upper Back Pain (DC) Forms: [facility] ([place]) - POA Present On Arrival: Falls Or Trauma
--- NOTE | 2018-01-11 15:36 | RAD ---
Date of service: 01/11/2018 PROCEDURE: Radiographs of the Chest and Left Ribs. HISTORY: Status post fall onto chair COMPARISON: Comparison chest 12/06/2017 the the the the the TECHNIQUE: Frontal radiograph of the chest and multiple oblique radiographs of the left ribs were obtained. FINDINGS: LEFT RIBS: No fracture or focal lesion visualized. LUNGS: Clear. PLEURA: No pneumothorax or pleural fluid. CARDIOVASCULAR: Normal sized heart. No pulmonary vascular congestion. OTHER FINDINGS: Metallic clips right upper quadrant of the abdomen consistent prior cholecystectomy IMPRESSION: Unremarkable radiographs of the chest and left ribs. No left rib fracture identified however if symptoms persist or occult fracture suspected clinically recommend followup CT scan of the chest. The the the.
== END 2018-01-11 14:13 | disposition home or self-care (01) ==
LOC: H.ER 12:38
DX: M54.6 Pain in thoracic spine (principal); S20.229A Contusion of unspecified back wall of thorax, initial encounter; W07.XXXA Fall from chair, initial encounter; Y92.241 Library as the place of occurrence of the external cause

== ENCOUNTER 2018-04-22 11:42 | Emergency (ER) | payer MEDICARE ==
[2018-04-22 11:50] VITALS: BP 124/80; PULSE 81; TEMP 97.3; O2SAT 98
[2018-04-22 11:51] VITALS: BMI 32.1
--- NOTE | 2018-04-22 12:26 | ED PDOC ---
HPI: General Adult Time Seen by Provider: 04/22/18 12:13 Chief Complaint (Provider): Left sided facial pain History Per: Patient History/Exam Limitations: no limitations Onset/Duration Of Symptoms: Days Current Symptoms Are (Timing): Still Present Additional Complaint(s): Roslyn Saunders is a 47 year old female, with a past medical history of cerebral palsy, seizures and multiple sinus infections, who presents to the emergency department complaining of left sided facial pain onset for a week and states it worsens at night. Patient reports feeling pain in her ears and teeth associated with a headache that worsens when leaning forwards. She took her 's antibiotics, unknown name, without relief. She denies any fever, chills, nasal discharge or other medical complaints. PMD: Dr. Seo Past Medical History Reviewed: Historical Data, Nursing Documentation, Vital Signs Vital Signs: Last Vital Signs Temp 97.3 F L 04/22/18 11:49 Pulse 81 04/22/18 11:49 Resp BP 124/80 04/22/18 11:49 Pulse Ox 98 04/22/18 11:49 - Medical History PMH: Anemia, Seizures Denies: Chronic Kidney Disease Other PMH: cerebral palsy - Surgical History Surgical History: No Surg Hx - Family History Family History: States: Unknown Family Hx - Home Medications Home Medications: Ambulatory Orders Medication Instructions Recorded Carbamazepine [Carbatrol] 400 mg PO Q12 07/26/15 Cyclobenzaprine [Cyclobenzaprine 10 mg PO TID #20 tab 01/11/18 HCl] Ibuprofen [Motrin] 600 mg PO Q6 #20 tab 01/11/18 Amoxicillin/Clavulanate [Augmentin 1 tab PO BID #20 tab 04/22/18 875 MG-125 MG] Ibuprofen [Motrin] 600 mg PO Q8 PRN #21 tab 04/22/18 - Allergies Allergies/Adverse Reactions: Allergies Allergy/AdvReac Type Severity Reaction Status Date / Time No Known Allergies Allergy Verified 12/06/17 20:21 Review of Systems ROS Statement: Except As Marked, All Systems Reviewed And Found Negative Constitutional: Negative for: Fever, Chills ENT: Positive for: Ear Pain, Mouth Pain (teeth). Negative for: Nose Discharge Neurological: Positive for: Headache Physical Exam - Reviewed Nursing Documentation Reviewed: Yes Vital Signs Reviewed: Yes - Physical Exam Appears: Positive for: No Acute Distress Head Exam: Positive for: ATRAUMATIC, NORMAL INSPECTION, NORMOCEPHALIC Skin: Positive for: Normal Color, Warm, Dry Eye Exam: Positive for: Normal appearance, EOMI, PERRL ENT: Positive for: Other (tenderness with palpation to left side of her face) Neck: Positive for: Normal, Painless ROM Cardiovascular/Chest: Positive for: Regular Rate, Rhythm. Negative for: Murmur Respiratory: Positive for: Normal Breath Sounds. Negative for: Respiratory Distress Gastrointestinal/Abdominal: Positive for: Normal Exam, Soft. Negative for: Tenderness Extremity: Positive for: Normal ROM (all extremities). Negative for: Deformity, Swelling Neurologic/Psych: Positive for: Alert, Oriented - ECG O2 Sat by Pulse Oximetry: 98 (RA) Pulse Ox Interpretation: Normal - Progress ED Course And Treament: Patient unsure of antibiotic name. We will write augmentin for 10 days and ask her to f/u with ENT for further evaluation. Medical Decision Making Medical Decision Making: Initial Impression: Initial Plan: --Reevaluation Scribe Attestation: Documented by Santosh Madison, acting as a scribe for Abril Pacheco PA-C Provider Scribe Attestation: All medical record entries made by the Scribe were at my direction and personally dictated by me. I have reviewed the chart and agree that the record accurately reflects my personal performance of the history, physical exam, medical decision making, and the department course for this patient. I have also personally directed, reviewed, and agree with the discharge instructions and disposition. Disposition - Clinical Impression Clinical Impression: Sinusitis - Patient ED Disposition Is Patient to be Admitted: No - Disposition Referrals: Adonis Cooper MD [Staff Provider] - Disposition: Routine/Home Disposition Time: 12:44 Condition: FAIR Prescriptions: Amoxicillin/Clavulanate [Augmentin 875 MG-125 MG] 1 tab PO BID #20 tab Ibuprofen [Motrin] 600 mg PO Q8 PRN #21 tab PRN Reason: Pain, Moderate (4-7) Instructions: Sinusitis, Adult (DC) Forms: [facility] ED School/Work Excuse
[2018-04-22 12:29] VITALS: RESP 18
== END 2018-04-22 12:54 | disposition home or self-care (01) ==
LOC: H.ER 11:42
DX: J32.9 Chronic sinusitis, unspecified (principal); G80.9 Cerebral palsy, unspecified; R56.9 Unspecified convulsions

== ENCOUNTER 2018-08-18 10:54 | Emergency (ER) | payer MEDICARE ==
[2018-08-18 11:12] VITALS: RESP 18; BMI 34.3
[2018-08-18] MEDS ORDERED: Sodium Chloride 0.9% 1,000 ML IV STA (12:18)
--- NOTE | 2018-08-18 12:33 | ED PDOC ---
HPI: Headache Time Seen by Provider: 08/18/18 11:32 Chief Complaint (Nursing): Headache Chief Complaint (Provider): HEadache History Per: Patient History/Exam Limitations: no limitations Current Symptoms Are (Timing): Still Present Quality: "Pain" Associated Symptoms: denies: Photophobia, Blurred Vision, Nausea, Vomiting Additional Complaint(s): 48yo female with history of cerebral palsy, seizures, last seizure occurring several months ago, comes with complaints of new onset left sided headache as well as left ear pain. Patient states the symptoms started last night and denies any trauma or injuries. Patient states she has had headaches before, but states this is different; patient states this is not the worst headache of her life. She denies any associated ear discharge, throat pain, neck pain, nasal congestion, vomiting, or vision changes. PMD: Dr. Seo Past Medical History Reviewed: Historical Data, Nursing Documentation, Vital Signs Vital Signs: Last Vital Signs Temp 98.2 F 08/18/18 11:11 Pulse 85 08/18/18 11:11 Resp 18 08/18/18 11:11 BP 124/79 08/18/18 11:11 Pulse Ox 97 08/18/18 11:11 - Medical History PMH: Anemia, Seizures Denies: Chronic Kidney Disease - Surgical History Surgical History: No Surg Hx - Family History Family History: States: Unknown Family Hx - Home Medications Home Medications: Ambulatory Orders Medication Instructions Recorded Carbamazepine [Carbatrol] 400 mg PO Q12 07/26/15 Cyclobenzaprine [Cyclobenzaprine 10 mg PO TID #20 tab 01/11/18 HCl] Ibuprofen [Motrin] 600 mg PO Q6 #20 tab 01/11/18 Amoxicillin/Clavulanate [Augmentin 1 tab PO BID #20 tab 04/22/18 875 MG-125 MG] Ibuprofen [Motrin] 600 mg PO Q8 PRN #21 tab 04/22/18 Amoxicillin [Amoxil 500 mg Cap] 500 mg PO BID #14 cap 08/18/18 Ibuprofen [Motrin Tab] 600 mg PO Q6 PRN #15 tab 08/18/18 - Allergies Allergies/Adverse Reactions: Allergies Allergy/AdvReac Type Severity Reaction Status Date / Time No Known Allergies Allergy Verified 12/06/17 20:21 Review of Systems ROS Statement: Except As Marked, All Systems Reviewed And Found Negative Eyes: Negative for: Vision Change ENT: Positive for: Ear Pain. Negative for: Nose Congestion, Throat Pain Musculoskeletal: Negative for: Neck Pain Neurological: Positive for: Headache Physical Exam - Reviewed Nursing Documentation Reviewed: Yes Vital Signs Reviewed: Yes - Physical Exam Appears: Positive for: No Acute Distress Head Exam: Positive for: ATRAUMATIC, NORMAL INSPECTION, NORMOCEPHALIC Skin: Positive for: Normal Color Eye Exam: Positive for: Normal appearance, EOMI, PERRL ENT: Positive for: TM Is/Are (left TM unremarkable), Other (no facial edema or t enderness). Negative for: Pharyngeal Erythema, Tonsillar Exudate, Tonsillar Swelling Neck: Positive for: Normal, Painless ROM, Supple Cardiovascular/Chest: Positive for: Regular Rate, Rhythm. Negative for: Tachycardia Respiratory: Positive for: Normal Breath Sounds. Negative for: Respiratory Distress Extremity: Positive for: Normal ROM Neurological/Psych: Positive for: Awake, Alert, Oriented (x 3), Motor/Sensory Deficits (right sided weakness, chronic due to history of cerebral palsy). Negative for: Facial Droop - Laboratory Results Result Diagrams: 08/18/18 13:42 08/18/18 13:42 - ECG O2 Sat by Pulse Oximetry: 97 (RA) Pulse Ox Interpretation: Normal Medical Decision Making Medical Decision Mak[place] female with complaints of headache and left ear pain CT head, CT maxillofacial, basic labs and urinalysis ordered. Patient given IV fluids, IV toradol and IV reglan, also given Tylenol 650mg PO. 1337 CT Head FINDINGS: HEMORRHAGE: No intracranial hemorrhage. 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 Expanded left lateral ventricle is stable. 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 Corticomedullary differentiation remains normal. No mass effect or definitive parenchymal edema. Posterior fossa contents are unremarkable and there is no suspicious extra-axial fluid collection appreciated. VENTRICLES: Unremarkable. No hydrocephalus. CALVARIUM: Unremarkable. PARANASAL SINUSES: Unremarkable as visualized. No significant inflammatory changes. MASTOID AIR CELLS: Unremarkable as visualized. No inflammatory changes. OTHER FINDINGS: None. 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 No intracranial hemorrhage, mass effect or parenchymal edema appreciated. 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 CT Maxillofacial FINDINGS: NASAL BONES: Unremarkable. ORBITS: Unremarkable. PARANASAL SINUSES/ MASTOIDS: No abnormal sinus opacification. Leftward bony nasal septal deviation. MAXILLA: Gross caries is seen eroding the majority of the crown of the apparent left maxilla 1st premolar. Twos appears to be status post root canal. Similar apical root abscess affects the tips of the right central lateral incisors. MANDIBLE/ TEMPOROMANDIBULAR JOINTS: Unremarkable. SKULL BASE: Unremarkable. TEMPORAL BONES: Middle ears and mastoid grossly unremarkable. OTHER FINDINGS: None. IMPRESSION: No definite acute fracture appreciated or facial edema/fluid collection. Gross dental caries erodes the vast majority of the crown of the left maxillary 1st premolar apparently status post and endodontic dental therapy. Similar apical root abscess affects right maxilla central and lateral incisors. d/w Dr Braxton, states can be discharged, see in office next week, Will start amoxil given dental CT findings and needs dental visit next week Feels better in ED, wants to go home on re-eval 315p Scribe Attestation: Documented by Sakshi Frey acting as a scribe for Arsenio Kimble DO. Provider Scribe Attestation: All medical record entries made by the Scribe were at my direction and personally dictated by me. I have reviewed the chart and agree that the record accurately reflects my personal performance of the history, physical exam, medical decision making, and the department course for this patient. I have also personally directed, reviewed, and agree with the discharge instructions and disposition. Disposition - Clinical Impression Clinical Impression: Headache, Dental abscess, Dental decay - Patient ED Disposition Is Patient to be Admitted: No Counseled Patient/Family Regarding: Studies Performed, Diagnosis, Need For Foll owup, Rx Given - Disposition Referrals: Keihsa Braxton MD [Staff Provider] - Disposition: Routine/Home Disposition Time: 15:25 Condition: STABLE Additional Instructions: Followup with Dr Braxton next week. Return to ER for any worse or new symptoms. Take pain medicine as directed. See dentist next week also. Prescriptions: Amoxicillin [Amoxil 500 mg Cap] 500 mg PO BID #14 cap Ibuprofen [Motrin Tab] 600 mg PO Q6 PRN #15 tab PRN Reason: Pain, Moderate (4-7) Instructions: Headache, Adult, Tooth Abscess (DC), Tooth Decay, Adult (DC) Forms: [facility] ([place])
--- NOTE | 2018-08-18 13:20 | CT ---
Date of service: 08/18/2018 PROCEDURE: CT HEAD WITHOUT CONTRAST. HISTORY: L headache COMPARISON: Noncontrast head CT 09/05/2011. TECHNIQUE: Axial computed tomography images were obtained through the head/brain without intravenous contrast. Radiation dose: Total exam DLP = 829.18 mGy-cm. This CT exam was performed using one or more of the following dose reduction techniques: Automated exposure control, adjustment of the mA and/or kV according to patient size, and/or use of iterative reconstruction technique. FINDINGS: HEMORRHAGE: No intracranial hemorrhage. 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 Expanded left lateral ventricle is stable. 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 Corticomedullary differentiation remains normal. No mass effect or definitive parenchymal edema. Posterior fossa contents are unremarkable and there is no suspicious extra-axial fluid collection appreciated. VENTRICLES: Unremarkable. No hydrocephalus. CALVARIUM: Unremarkable. PARANASAL SINUSES: Unremarkable as visualized. No significant inflammatory changes. MASTOID AIR CELLS: Unremarkable as visualized. No inflammatory changes. OTHER FINDINGS: None. 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 No intracranial hemorrhage, mass effect or parenchymal edema appreciated. 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
--- NOTE | 2018-08-18 13:50 | CT ---
Date of service: 08/18/2018 PROCEDURE: CT MAXILLOFACIAL BONES WITHOUT CONTRAST HISTORY: L facial pain/headache COMPARISON: None available. TECHNIQUE: Contiguous axial CT images of the maxillofacial bones were obtained. Coronal and sagittal reformats were generated. Radiation dose: Total exam DLP = 778.72 mGy-cm. This CT exam was performed using one or more of the following dose reduction techniques: Automated exposure control, adjustment of the mA and/or kV according to patient size, and/or use of iterative reconstruction technique. FINDINGS: NASAL BONES: Unremarkable. ORBITS: Unremarkable. PARANASAL SINUSES/ MASTOIDS: No abnormal sinus opacification. Leftward bony nasal septal deviation. MAXILLA: Gross caries is seen eroding the majority of the crown of the apparent left maxilla 1st premolar. Twos appears to be status post root canal. Similar apical root abscess affects the tips of the right central lateral incisors. MANDIBLE/ TEMPOROMANDIBULAR JOINTS: Unremarkable. SKULL BASE: Unremarkable. TEMPORAL BONES: Middle ears and mastoid grossly unremarkable. OTHER FINDINGS: None. IMPRESSION: No definite acute fracture appreciated or facial edema/fluid collection. Gross dental caries erodes the vast majority of the crown of the left maxillary 1st premolar apparently status post and endodontic dental therapy. Similar apical root abscess affects right maxilla central and lateral incisors.
[2018-08-18 14:03] LABS: BASO # 0.1 K/uL (0.0-0.2); BASO % 0.9 % (0.0-2.0); EOS # 0.2 K/uL (0.0-0.7); EOS % 3.2 % (0.0-4.0); HEMOGLOBIN 9.8 g/dL (12.0-16.0); LYMPH # 1.8 K/uL (1.0-4.3); LYMPH % 23.9 % (20.0-40.0); MEAN CELL VOLUME 74.3 fl (81.0-99.0); MEAN CORPUSCULAR HEMOGLOBIN 23.9 pg (27.0-31.0); MEAN CORPUSCULAR HGB CONC 32.2 g/dL (33.0-37.0); MONO # 0.6 K/uL (0.0-0.8); MONO % 8.5 % (0.0-10.0); NEUT # 4.8 K/uL (1.8-7.0); NEUT % 63.5 % (50.0-75.0); NRBC % 0.2 % (0.0-0.0); RBC 4.1 Mil/uL (3.80-5.20); RED CELL DISTRIBUTION WIDTH 18.2 % (11.5-14.5); WHITE BLOOD COUNT 7.5 K/uL (4.8-10.8)
[2018-08-18 14:19] LABS: ALB/GLOB RATIO 1.3 (1.0-2.1); ALBUMIN 4.3 g/dL (3.5-5.0); BLOOD UREA NITROGEN 16 mg/dl (7-17); GFR NON-AFRICAN AMERICAN > 60
[2018-08-18 14:26] LABS: ALT/SGPT 22 U/L (9-52); AST/SGOT 38 U/L (14-36)
[2018-08-18] MEDS ORDERED: Dexamethasone 6 MG in Sodium Chloride 0.9% 50 ML IVPB STA (14:30)
[2018-08-18 15:16] VITALS: BP 121/71; PULSE 70; TEMP 98.6
[2018-08-18 15:25] VITALS: O2SAT 97
== END 2018-08-18 15:21 | disposition home or self-care (01) ==
LOC: H.ER 10:54
DX: R51 Headache (principal); K04.7 Periapical abscess without sinus; K02.9 Dental caries, unspecified; J34.2 Deviated nasal septum; Q04.0 Congenital malformations of corpus callosum
CPT/HCPCS: 70450; 70486; 80053; 81025; 84484; 85025; 96374; 99285; J1100; J1885; J2765; J7030